=== PATIENT | female | born 1970 | race Caucasian/White ===

== ENCOUNTER 2020-08-09 14:56 | Emergency (ER) | payer OTHER, MEDICAID, SELFPAY ==
[2020-08-09 15:03] VITALS: BP 172/94; PULSE 74; RESP 16; TEMP 36.6; O2SAT 98
[2020-08-09 16:23] VITALS: PULSE 86; RESP 16; O2SAT 98
[2020-08-09] MEDS: ACETAMINOPHEN 325 MG TABLET 650 MG PO (16:55)
[2020-08-09] MEDS: LIDOCAINE PATCH 1 EACH ADH..PATCH 2 EACH TOP (16:55)
[2020-08-09] MEDS: KETOROLAC 30 MG/ML VIAL IM (16:55)
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
== END 2020-08-09 17:36 | disposition home or self-care (01) ==
PROVIDERS: Emergency Provider Nurse Practitioner Family
DX: M54.2 Cervicalgia (principal); I10 Essential (primary) hypertension
CPT/HCPCS: 96372; 99283; J1885

== ENCOUNTER 2021-09-11 22:53 | Emergency (ER) | payer OTHER, MEDICAID, SELFPAY ==
[2021-09-11 23:08] VITALS: BP 144/85; PULSE 90; RESP 18; TEMP 36.7; O2SAT 98
--- NOTE | 2021-09-12 01:11 | ED_ITS ---
HPI - Wound/Laceration General Chief Complaint: Wound/Laceration Stated Complaint: lt middle finger cut Time Seen by Provider: 09/11/21 23:22 Source: patient Mode of arrival: Ambulatory History of Present Illness HPI narrative: 51-year-old female daily smoker without chronic medical problems presents for evaluation of a laceration to the tip of her left middle finger. She was using a sharp knife when it slipped and cut her finger and slightly lacerated the nail. She was bleeding a large amount prior to her arrival but it stopped before she got here. Her tetanus is out-of-date and she will need to have 1 today. She has some pain but denies any numbness, tingling or weakness. She denies chest pain or shortness of breath, she is not dizzy nor weak or lightheaded and is otherwise well and free of complaint Related Data Previous Rx's Medication Instructions Recorded cyclobenzaprine 10 mg tablet 10 mg PO BID PRN muscle spasm #14 08/09/20 tabs lidocaine 5 % topical patch 2 patch topical DAILY PRN pain #30 08/09/20 ea Allergies Allergy/AdvReac Type Severity Reaction Status Date / Time iodine Allergy Verified 08/09/20 16:55 shellfish derived Allergy Verified 08/09/20 16:55 Review of Systems Review of Systems Narrative: GENERAL: Denies chills, fatigue, malaise, fever, sweats. HEENT: Denies sinus pain, ear pain, sore throat, difficulty swallowing, dizziness. RESPIRATORY: Denies dyspnea, cough, wheezing, hemoptysis, sputum. CARDIOVASCULAR: Denies chest pain, palpitations, orthopnea, edema, GASTROINTESTINAL: Denies nausea, vomiting, abdominal pain, diarrhea, constipation, melena. : Denies dysuria, frequency, incontinence, hematuria, urinary retention. MUSCULOSKELETAL: denies weakness, joint pain, or bony pain SKIN: See HPI NEUROLOGIC: Denies weakness, headache, numbness, change in speech, confusion, se izures, incoordination. PSYCHIATRIC: No concerning psychosocial issues. 12 point review of systems is negative except for those stated above Patient History Medical History Low back pain Neck pain Social History Smoking Status: Current every day smoker Smoking Status: Current every day smoker tobacco type: vaping Substance Use Type: does not use Exam Narrative Exam Narrative: GEN: AOx3 and in mild distress EYES: Pupils are equal, round, and reactive to light and accommodation. Extraoccular muscles are intact bilaterally. There is no subconjunctival hemorrhage or exudate. CHEST: Lungs are clear to auscultation bilaterally and free of wheezes, rales, or rhonchi. Heart rate is regular rhythm, there are no murmurs, clicks, rubs, or gallops. There is no chest wall tenderness. ABD: Abdomen is soft and nontender. There is no guarding or rebound. Bowel sounds are normal in all 4 quadrants. There is no mass or organomegaly. EXT: 0.5 cm laceration to the tip of left middle finger that does slightly involve the nail, there is no obvious nail bed involvement and no nail fold. There is no foreign body, no evidence of bony or tendinous injury. Full painless ROM of all extremities with no loss of sensation or strength. SKIN: Warm, pink, and dry. No erythema or rash Initial Vital Signs Initial Vital Signs: Vital Signs Temperature 98.1 F 09/11/21 23:08 Pulse Rate 90 09/11/21 23:08 Respiratory Rate 18 09/11/21 23:08 Blood Pressure 144/85 H 09/11/21 23:08 Pulse Oximetry 98 09/11/21 23:08 Oxygen Delivery Method 09/11/21 23:08 Procedures Laceration Repair Laceration 1: Site: hand Side (If applicable): left Size (cm): 1 Description: linear Depth: simple, single layer Pre-repair: wound explored Skin layer closed with: nylon Skin layer suture size: 5-0 Number of sutures: 3 Technique: simple, interrupted Nerve Block Nerve Block 1: Time out performed: Yes Local Anesthetic: lidocaine 1% Amount of anesthesia used (mL): 4 Side: left Nerve Blocks: digital Procedure Successful: Yes Patient Tolerated Procedure: Well Complications: none Course Orders Ordered: Discontinued Medications Bacitracin (Bacitracin Oint 0.9 Gm Pckt) 1 applic TOP NOW ONE Stop: 09/12/21 02:22 Diphtheria/Tetanus/Acell Pertussis (Tet,Diph,Pertuss(Acell),Vac/Pf 0.5 Ml Syringe) 0.5 ml IM .ONCE ONE Stop: 09/12/21 01:26 Last Admin: 09/12/21 01:55 Dose: 0.5 ml Documented By: JUAN Lidocaine HCl (Lidocaine 2% Inj Mdv) 1 ml SUBCUT NOW ONE Stop: 09/12/21 01:25 Vital Signs Vital signs: Vital Signs - 8 hr 09/11/21 23:08 Temperature 98.1 F Pulse Rate 90 Respiratory Rate 18 Blood Pressure 144/85 H Pulse Oximetry 98 Oxygen Delivery Method Room Air Discharge Plan Departure Patient Disposition: Home Clinical Impression: Laceration of middle finger Instructions: DI for Laceration Repair Activity Restrictions/Additional Instructions: Please keep the wound clean and dry to the best of your ability. Please monitor for signs of infection such as redness to the skin or increasing pain. Have the sutures/angelito removed by your doctor in about 7 days. If you are unable to g et into your doctor, we would be happy to remove the sutures/angelito in that same timeframe. Prescriptions: No Action cyclobenzaprine 10 mg tablet 10 mg PO BID PRN (Reason: muscle spasm) Qty: 14 0RF lidocaine 5 % adhesive patch,medicated 2 patch topical DAILY PRN (Reason: pain) Qty: 30 0RF Rx Instructions: leave on most painful area for up to 12 hrs
[2021-09-12] MEDS: TET,DIPH,PERTUSS(ACELL),VAC/PF 0.5 ML SYRINGE IM (01:55)
[2021-09-12] MEDS: BACITRACIN OINT 0.9 GM PCKT 1 APPLIC TOP (02:32)
[2021-09-12] MEDS: LIDOCAINE 2% INJ MDV 1 ML SUBCUT (02:33)
[2021-09-12 02:34] VITALS: BP 144/88; PULSE 80; RESP 18; O2SAT 98
== END 2021-09-12 02:34 | disposition home or self-care (01) ==
PROVIDERS: Emergency Provider Emergency Medicine
DX: S61.213A Laceration without foreign body of left middle finger without damage to nail, initial encounter (principal); W26.0XXA Contact with knife, initial encounter; Z23 Encounter for immunization
CPT/HCPCS: 12001; 64450; 90471; 99283; 90715

== ENCOUNTER 2021-10-10 13:45 | Emergency (ER) | payer OTHER, MEDICAID, SELFPAY ==
[2021-10-10 14:03] VITALS: BP 137/100; PULSE 101; RESP 16; TEMP 36.4; O2SAT 98; BMI 27.4
[2021-10-10] MEDS: predniSONE 20 MG TABLET 40 MG PO (16:02)
[2021-10-10] MEDS: KETOROLAC 30 MG/ML VIAL 15 MG IM (16:02)
[2021-10-10] MEDS: LIDOCAINE PATCH 1 EACH ADH..PATCH TOP (16:02)
[2021-10-10] MEDS: OXYCODONE/ACETAMINOPHEN 5/325 TABLET 1 TAB PO (16:03)
[2021-10-10] MEDS: methocarbamoL 500 MG TABLET PO (16:03)
[2021-10-10 16:28] VITALS: BP 134/78; PULSE 66; RESP 12; O2SAT 98
--- NOTE | 2021-10-10 20:40 | ED_ITS ---
HPI - Back Pain/Injury <PADMINI Diaz - Last Filed: 10/10/21 20:44> General Chief Complaint: Back Pain/Injury Stated Complaint: lower back pain Time Seen by Provider: 10/10/21 15:12 Source: patient History of Present Illness HPI Narrative: This is a 51-year-old female with history of low back pain from an injury, she presents with her MRI report from 09/03/2021 showing that she has herniated lumbar disc between L4 and L5 with compression on a nerve. She comes to the emergency department for pain exacerbation fall pending follow-up with her insurance for a referral to an orthopedic surgeon. Patient states that she has been using muscle relaxers, lidocaine patches, meloxicam, and her pain has not improved. She denies any weakness, any incontinence, any numbness or tingling sensation. She denies any new trauma. Related Data Previous Rx's Medication Instructions Recorded cyclobenzaprine 10 mg tablet 10 mg PO BID PRN muscle spasm #14 08/09/20 tabs lidocaine 5 % topical patch 2 patch topical DAILY PRN pain #30 08/09/20 ea ketorolac 10 mg tablet 10 mg PO TID PRN pain 5 days #20 10/10/21 tabs methocarbamol 500 mg tablet 500 mg PO TID PRN muscle 10/10/21 spasm/sleep #20 tabs prednisone 50 mg tablet 50 mg PO DAILY 5 days #5 tabs 10/10/21 Allergies Allergy/AdvReac Type Severity Reaction Status Date / Time iodine Allergy Verified 10/10/21 14:06 shellfish derived Allergy Verified 10/10/21 14:06 Review of Systems <PADMINI Diaz - Last Filed: 10/10/21 20:44> Review of Systems Narrative: Review of systems is negative for acute abnormalities unless otherwise noted in HPI Patient History <PADMINI Diaz - Last Filed: 10/10/21 20:44> Medical History Low back pain Neck pain Social History Smoking Status: Current every day smoker Smoking Status: Current every day smoker tobacco type: vaping alcohol intake frequency: a few times a week Substance Use Type: does not use Exam <PADMINI Diaz - Last Filed: 10/10/21 20:44> Narrative Exam Narrative: Reviewed vitals signs and nursing notes. General: cooperative, comfortable, in no acute distress, well groomed HEENT: symmetrical facial expressions, moist mucous membranes Cardiovascular: regular rate and rhythm, no peripheral edema, warm extremities Respiratory: normal effort, able to speak in complete sentences, without wheezing, stridor, or abnormal breath sounds. No retractions or tachypnea. GI: abdomen soft, nontender to palpation, nondistended, without masses, rebound tenderness or exquisite tenderness with exam. MSK: moves all extremities, neurovascularly intact, no weakness, normal tone tenderness to palpation of the paraspinal musculature in her low lumbar spine, no tenderness to palpation along lumbar spine Skin: brisk capillary refill, without pallor or erythema Neuro: normal speech and cognition, A&O x3, ambulatory, clear speech Psych: mental status is grossly normal, congruent mood, normal affect, pleasant and cooperative Initial Vital Signs Initial Vital Signs: Vital Signs Temperature 97.6 F 10/10/21 14:03 Pulse Rate 101 H 10/10/21 14:03 Respiratory Rate 16 10/10/21 14:03 Blood Pressure 137/100 H 10/10/21 14:03 Pulse Oximetry 98 10/10/21 14:03 Oxygen Delivery Method 10/10/21 14:03 <Leigh Jones DO - Last Filed: 10/11/21 08:33> Initial Vital Signs Initial Vital Signs: Vital Signs Temperature 97.6 F 10/10/21 14:03 Pulse Rate 101 H 10/10/21 14:03 Respiratory Rate 16 10/10/21 14:03 Blood Pressure 137/100 H 10/10/21 14:03 Pulse Oximetry 98 10/10/21 14:03 Oxygen Delivery Method 10/10/21 14:03 Course <PADMINI Diaz - Last Filed: 10/10/21 20:44> Orders Ordered: Discontinued Medications Ketorolac Tromethamine (Ketorolac 30 Mg/Ml Vial) 15 mg IM NOW ONE Stop: 10/10/21 15:51 Last Admin: 10/10/21 16:02 Dose: 15 mg Documented By: [facility] Lidocaine (Lidocaine Patch 1 Each Adh..Patch) 1 each TOP NOW ONE Stop: 10/10/21 15:51 Last Admin: 10/10/21 16:02 Dose: 1 each Documented By: PARRISH Methocarbamol (Methocarbamol 500 Mg Tablet) 500 mg PO NOW ONE Stop: 10/10/21 15:51 Last Admin: 10/10/21 16:03 Dose: 500 mg Documented By: PARRISH Oxycodone/Acetaminophen (Oxycodone/Acetaminophen 5/325 Tablet) 1 tab PO NOW ONE Stop: 10/10/21 15:51 Last Admin: 10/10/21 16:03 Dose: 1 tab Documented By: PARRISH Prednisone (Prednisone 20 Mg Tablet) 40 mg PO NOW ONE Stop: 10/10/21 15:51 Last Admin: 10/10/21 16:02 Dose: 40 mg Documented By: PARRISH Vital Signs Vital signs: Vital Signs - 8 hr 10/10/21 14:03 10/10/21 16:28 Temperature 97.6 F Pulse Rate 101 H 66 Respiratory Rate 16 12 Blood Pressure 137/100 H 134/78 Pulse Oximetry 98 98 Oxygen Delivery Method Room Air Room Air <Leigh Jones, - Last Filed: 10/11/21 08:33> Orders Ordered: Discontinued Medications Ketorolac Tromethamine (Ketorolac 30 Mg/Ml Vial) 15 mg IM NOW ONE Stop: 10/10/21 15:51 Last Admin: 10/10/21 16:02 Dose: 15 mg Documented By: PARRISH Lidocaine (Lidocaine Patch 1 Each Adh..Patch) 1 each TOP NOW ONE Stop: 10/10/21 15:51 Last Admin: 10/10/21 16:02 Dose: 1 each Documented By: PARRISH Methocarbamol (Methocarbamol 500 Mg Tablet) 500 mg PO NOW ONE Stop: 10/10/21 15:51 Last Admin: 10/10/21 16:03 Dose: 500 mg Documented By: PARRISH Oxycodone/Acetaminophen (Oxycodone/Acetaminophen 5/325 Tablet) 1 tab PO NOW ONE Stop: 10/10/21 15:51 Last Admin: 10/10/21 16:03 Dose: 1 tab Documented By: PARRISH Prednisone (Prednisone 20 Mg Tablet) 40 mg PO NOW ONE Stop: 10/10/21 15:51 Last Admin: 10/10/21 16:02 Dose: 40 mg Documented By: [facility] Vital Signs Vital signs: Vital Signs - 8 hr 10/10/21 14:03 10/10/21 16:28 Temperature 97.6 F Pulse Rate 101 H 66 Respiratory Rate 16 12 Blood Pressure 137/100 H 134/78 Pulse Oximetry 98 98 Oxygen Delivery Method Room Air Room Air MDM - Back Pain/Injury <Darby Gibson, [employer]POINTMENTS SUPERVISOR - Last Filed: 10/10/21 20:44> MDM Narrative Medical decision making narrative: This is a 51-year-old female presents to emergency department for exacerbation of her low back pain with a copy of her recent MR results of her lumbar spine showing she has herniated disc between L4 and L5 with compression on a nerve. Today in the emergency department she was given 40 mg of prednisone, she was discharged with 5 days prednisone, methocarbamol for muscle spasms, lidocaine patches and ketorolac. She was given contact information for Dr. Liu and Dr. Calvin for orthopedic spine surgery and patient will follow up accordingly with a referral from her primary care provider. Patient states that she is changing her insurance because there are not any spinal surgeons who did accept her insurance currently and her new insurance start October 18. She was seeking pain control and relief of her acute exacerbation low back pain. Given history and exam, suspect likely musculoskeletal etiology, they are nontoxic appearing with no overt risk factors for epidural hematoma or abscess. No overt evidence of critical cord compression and has a nonfocal near exam. Neurovascularly intact distally, no evidence of infection, peritoneal signs, hypertensive crisis, or abdominal pain with low suspicion for AAA. No weakness, incontinence, neurovascular or sensation changes, no concerning findings for cau willy equina syndrome, lumbar fracture, without paresthesia, neuropathic pain, meningeal signs and fever. This could be a herniated disk, paraspinal or other muscle strain, ligamental injury, arthritic, nephrolithiasis/pyelonephritis, epidural abscess, chronic pain, and other diagnosis? considered less likely. Discharge Plan Departure Patient Disposition: Home Clinical Impression: Herniation of intervertebral disc between L4 and L5 Instructions: Herniated Disc, DI for Back Pain With Sciatica Activity Restrictions/Additional Instructions: *You have been diagnosed with a herniated disc with impingement on your nerve root. This causes significant pain as you know, and makes it hard to do her normal activities. Please use these medications as needed for your pain, follow-up at [facility] regarding your insurance and referral. I hope that you can find a good surgeon. You can have your primary care provider put your referral in to either Dr. Liu at [facility] or Dr. Calvin who is closer to you in [place]. Please take your medications with food and water and avoid taking the steroid or Toradol on an empty stomach. Do not take meloxicam and Toradol together. I hope you start feeling better soon, please use all of your pain medications as needed. *What to do: *Please continue to take your regular medications as directed. [ ] New medication prescriptions sent to your pharmacy: [ [facility]] [ ] New medication written as a paper prescription [ ] No new medications given *Please follow up with your primary care provider in 2-3 days, call for an appointment. Let them know you were seen in the Emergency Department and that we asked that you be seen for follow-up. We will electronically transmit a record of today's note if your PCP is in our system *If you do not have a primary care provider please contact [phone] to establish care with one of the [facility] primary care providers. *Return to Emergency Department if you should have any new, worsening, or concerning symptoms, such as [fever greater than 101F, chills, worsening pain, persistent vomiting or other bothersome symptoms]. Prescriptions: New methocarbamol 500 mg tablet 500 mg PO TID PRN (Reason: muscle spasm/sleep) Qty: 20 0RF ketorolac 10 mg tablet 10 mg PO TID PRN (Reason: pain) 5 Days Qty: 20 0RF prednisone 50 mg tablet 50 mg PO DAILY 5 Days Qty: 5 0RF No Action cyclobenzaprine 10 mg tablet 10 mg PO BID PRN (Reason: muscle spasm) Qty: 14 0RF lidocaine 5 % adhesive patch,medicated 2 patch topical DAILY PRN (Reason: pain) Qty: 30 0RF Rx Instructions: leave on most painful area for up to 12 hrs Referrals: Luis Carlos Liu MD [Physician] - Richmond Calvin MD [Physician] - Visit Report Forms: Patient Portal/API <Leigh Jones DO - Last Filed: 10/11/21 08:33> Cosign ED Attending Cosignature Attestation: I was immediately available in the department for consultation. Documentation has been reviewed. I agree with assessment and plan.
== END 2021-10-10 16:30 | disposition home or self-care (01) ==
PROVIDERS: Emergency Provider Nurse Practitioner Critical Care Medicine
DX: M51.26 Other intervertebral disc displacement, lumbar region (principal)
CPT/HCPCS: 96372; 99283; J1885